=== PATIENT | female | born 1930 | race Caucasian/White ===

== ENCOUNTER 2017-09-16 16:18 | Inpatient (IN) | payer OTHER ==
[~2017-09-16] VITALS: Ht 170.2 cm; Wt 81.4 kg
[2017-09-16 16:55] LABS: BASOPHIL (%) 0.1 % (0-1); EOSINOPHIL (%) 0 % (0-5); HEMATOCRIT 42.9 % (36.0-46.0); HEMOGLOBIN 14.7 G/DL (11.9-15.5); IMMATURE GRANULOCYTE (%) 0.6 % (0.0-0.7); LYMPHOCYTE (%) 6.9 % (15-42); MCH 30.8 PG (29.0-34.0); MCHC 34.3 G/DL (30.0-36.0); MCV 89.7 FL (83-99); MONOCYTE (%) 7.6 % (3-12); MONOCYTE COUNT 1.1 K/uL (0-0.8); NEUTROPHIL (%) 84.8 % (45-76); NEUTROPHIL COUNT 12.1 K/uL (1.8-6.4); PLATELET COUNT 221 K/uL (156-360); RBC DIS.WIDTH-CV 12.4 % (11.8-14.6); RBC DIS.WIDTH-SD 41.2 % (39-53); RED BLOOD COUNT 4.78 M/uL (3.80-5.20); WHITE BLOOD COUNT 14.3 K/uL (4.1-10.2)
[2017-09-16 16:59] LABS: INTER. NORMALIZED RATIO 1.1
[2017-09-16 17:07] LABS: ALBUMIN 3.8 g/dL (3.2-4.8)
[2017-09-16 17:08] LABS: CHLORIDE 103 mEq/L (99-109); POTASSIUM 4.2 mEq/L (3.7-5.4); SODIUM 141 mEq/L (136-147)
[2017-09-16 17:10] LABS: GLUCOSE 107 mg/dL (70-99); TOTAL PROTEIN 7.1 g/dL (6.4-8.3)
[2017-09-16 17:12] LABS: TOTAL BILIRUBIN 0.7 mg/dL (0.0-1.0)
[2017-09-16 17:13] LABS: ALKALINE PHOSPHATASE 59 IU/L (3-129)
[2017-09-16 17:14] LABS: CREATININE 1.1 mg/dL (0.6-1.3); GFR ESTIMATE (CALCULATED) 50 mL/min/
[2017-09-16 17:15] LABS: AST (GOT) 247 IU/L (2-34); TROP-I INTERPRETATION NEGATIVE; TROPONIN-I 0.06 ng/mL (0.0-0.30); UREA NITROGEN (BUN) 55 mg/dL (9-23)
[2017-09-16 17:17] LABS: ALT (GPT) 107 IU/L (3-49)
[2017-09-16 17:24] LABS: CK-MB 49.9 ng/mL (0.0-4.9)
[2017-09-16 17:28] LABS: CKMB RELATIVE INDEX 0.6 (0.0-3.9); TOTAL CK 7857 IU/L (1-294)
[2017-09-16 17:51] LABS: CREATINE KINASE 7857 IU/L (1-294)
[2017-09-16] MEDS ORDERED: LISINOPRIL20 MG PO (18:24)
[2017-09-16] MEDS ORDERED: ATENOLOL50 MG PO (18:24)
[2017-09-16] MEDS ORDERED: AMLODIPINE BES2.5 MG PO (18:24)
[2017-09-16] MEDS ORDERED: PRAVASTATIN SOD40 MG PO (18:25)
[2017-09-16] MEDS ORDERED: GLUCOSAMINE &1 EAC1 PO (18:25)
[2017-09-16] MEDS ORDERED: ADVIL200 MG PO (18:26)
[2017-09-16] MEDS ORDERED: ONE DAILY1 EAC3 PO (18:26)
[2017-09-16] MEDS ORDERED: BIOFREEZE TP (18:27)
[2017-09-16] MEDS ORDERED: ARTIFICIAL TEAR1510 BOTH EYES (18:28)
[2017-09-16 19:57] LABS: APPEARANCE SL.HAZY ((CLEAR)); BILIRUBIN NEGATIVE; BLOOD MODERATE; GLUCOSE (STRIP) NEGATIVE; KETONES 5; LEUKOCYTES NEGATIVE; NITRITE NEGATIVE; PROTEIN (STRIP) 100; SPECIFIC GRAVITY 1.023 (1.000-1.030); UROBILINOGEN 0.2 MG/DL (0.2-1.0)
[2017-09-16 20:10] LABS: BACTERIA NONE SEEN /HPF; EPITHELIAL CELLS NONE SEEN /HPF; HYALINE CASTS 0-5 /LPF; MUCUS TRACE /LPF; RED BLOOD CELLS 0-5 /HPF (0-5); UCUL ADDED? NO; WHITE BLOOD CELLS 0-5 /HPF (0-5)
[2017-09-16 20:17] LABS: COLOR YELLOW ((YELLOW))
[2017-09-16 22:00] VITALS: BP 133/52
[2017-09-16 23:14] LABS: TROP-I INTERPRETATION NEGATIVE; TROPONIN-I 0.05 ng/mL (0.0-0.30)
[2017-09-16 23:30] VITALS: BP 148/62
[2017-09-17 05:00] VITALS: BP 119/60
[2017-09-17 05:36] LABS: HEMATOCRIT 38.6 % (36.0-46.0); MCH 30.8 PG (29.0-34.0); MCHC 33.7 G/DL (30.0-36.0); MCV 91.5 FL (83-99); PLATELET COUNT 204 K/uL (156-360); RBC DIS.WIDTH-CV 12.7 % (11.8-14.6); RBC DIS.WIDTH-SD 41.5 % (39-53); RED BLOOD COUNT 4.22 M/uL (3.80-5.20); WHITE BLOOD COUNT 10.9 K/uL (4.1-10.2)
[2017-09-17 05:54] LABS: TROP-I INTERPRETATION NEGATIVE; TROPONIN-I 0.08 ng/mL (0.0-0.30)
[2017-09-17 06:17] LABS: ALBUMIN 3.2 G/DL (3.2-4.8); ALKALINE PHOSPHATASE 44 IU/L (3-129); ALT (GPT) 81 IU/L (3-49); AST (GOT) 173 IU/L (2-34); CHLORIDE 106 MEQ/L (99-109); CREATINE KINASE 4836 IU/L (1-294); CREATININE 1.1 MG/DL (0.6-1.3); DIRECT BILIRUBIN 0.1 mg/dL (0.0-0.3); GFR ESTIMATE (CALCULATED) 50 mL/min/; GLUCOSE 104 mg/dL (70-99); POTASSIUM 3.6 MEQ/L (3.7-5.4); SODIUM 141 MEQ/L (136-147); TOTAL BILIRUBIN 0.6 MG/DL (0.0-1.0); TOTAL PROTEIN 5.7 G/DL (6.4-8.3); UREA NITROGEN (BUN) 56 mg/dL (9-23)
[2017-09-17 12:00] VITALS: BP 133/63
[2017-09-17 15:45] VITALS: BP 125/60
[2017-09-17 19:30] VITALS: BP 126/58
[2017-09-17 23:45] VITALS: BP 142/71
[2017-09-18 04:05] VITALS: BP 142/64
[2017-09-18 05:47] LABS: HEMATOCRIT 35.5 % (36.0-46.0); HEMOGLOBIN 11.7 G/DL (11.9-15.5); MCH 30.4 PG (29.0-34.0); MCV 92.2 FL (83-99); RBC DIS.WIDTH-CV 12.8 % (11.8-14.6); RBC DIS.WIDTH-SD 42.8 % (39-53); RED BLOOD COUNT 3.85 M/uL (3.80-5.20); WHITE BLOOD COUNT 6.5 K/uL (4.1-10.2)
[2017-09-18 06:08] LABS: ALBUMIN 2.7 G/DL (3.2-4.8); ALKALINE PHOSPHATASE 40 IU/L (3-129); ALT (GPT) 70 IU/L (3-49); AST (GOT) 120 IU/L (2-34); CHLORIDE 110 MEQ/L (99-109); CREATINE KINASE 2359 IU/L (1-294); CREATININE 0.7 MG/DL (0.6-1.3); DIRECT BILIRUBIN 0.1 mg/dL (0.0-0.3); GFR ESTIMATE (CALCULATED) > 59 mL/min/; GLUCOSE 100 mg/dL (70-99); POTASSIUM 3.8 MEQ/L (3.7-5.4); SODIUM 142 MEQ/L (136-147); TOTAL BILIRUBIN 0.6 MG/DL (0.0-1.0); TOTAL PROTEIN 4.8 G/DL (6.4-8.3); UREA NITROGEN (BUN) 35 mg/dL (9-23)
[2017-09-18 06:25] LABS: PLAT.SUFFICIENCY DECREASED; PLATELET COUNT 112 K/uL (156-360)
[2017-09-18 09:00] VITALS: BP 135/61
[2017-09-18 12:00] VITALS: BP 136/65
[2017-09-18 15:17] VITALS: BP 148/65
[2017-09-18 19:47] VITALS: BP 147/68
[2017-09-18 23:13] VITALS: BP 145/65
[2017-09-19 05:31] VITALS: BP 155/69
[2017-09-19 09:00] VITALS: BP 138/63
[2017-09-19 16:00] VITALS: BP 188/89
[2017-09-19 19:10] VITALS: BP 178/80
[2017-09-20] VITALS (8 sets, daily range): BP systolic 136–168; BP diastolic 62–86
[2017-09-20 06:46] LABS: CHLORIDE 105 MEQ/L (99-109); CREATINE KINASE 781 IU/L (1-294); CREATININE 0.8 MG/DL (0.6-1.3); GFR ESTIMATE (CALCULATED) > 59 mL/min/; GLUCOSE 129 mg/dL (70-99); POTASSIUM 4.3 MEQ/L (3.7-5.4); SODIUM 139 MEQ/L (136-147); UREA NITROGEN (BUN) 18 mg/dL (9-23)
[2017-09-20 12:07] LABS: HEMATOCRIT 39.2 % (36.0-46.0); HEMOGLOBIN 12.9 G/DL (11.9-15.5); MCH 30.6 PG (29.0-34.0); MCHC 32.9 G/DL (30.0-36.0); MCV 92.9 FL (83-99); RBC DIS.WIDTH-CV 12.6 % (11.8-14.6); RBC DIS.WIDTH-SD 42.7 % (39-53); RED BLOOD COUNT 4.22 M/uL (3.80-5.20); WHITE BLOOD COUNT 8.4 K/uL (4.1-10.2)
[2017-09-20 12:11] LABS: PLATELET COUNT 156 K/uL (156-360)
[2017-09-21 04:26] VITALS: BP 157/76
[2017-09-21 06:11] LABS: CHLORIDE 106 MEQ/L (99-109); CREATININE 0.6 MG/DL (0.6-1.3); GFR ESTIMATE (CALCULATED) > 59 mL/min/; GLUCOSE 103 mg/dL (70-99); POTASSIUM 3.5 MEQ/L (3.7-5.4); SODIUM 140 MEQ/L (136-147); UREA NITROGEN (BUN) 17 mg/dL (9-23)
[2017-09-21 07:33] LABS: CREATINE KINASE 286 IU/L (1-294)
[2017-09-21 08:45] VITALS: BP 157/80
[2017-09-21] MEDS ORDERED: AMLODIPINE BESYL5 MG PO (11:08)
[2017-09-21] MEDS ORDERED: CLOTRIMAZOLE15 GM TP (11:09)
== END 2017-09-21 12:44 | DRG 558 ==
LOC: EME 16:18 → EDOF 20:34 → 3EAST 20:34 → 4EAST 20:34 → ENRESERV 20:36 → 4EAST 21:39 → ENRESERV 09-20 00:58 → 3EAST 09-20 01:58
PROVIDERS: Emergency Medicine; Hospitalist; Physician Assistant
DX: M62.82 Rhabdomyolysis (principal); B37.0 Candidal stomatitis; B37.3 Candidiasis of vulva and vagina; E86.0 Dehydration; E87.6 Hypokalemia; I10 Essential (primary) hypertension; D69.6 Thrombocytopenia, unspecified; E78.5 Hyperlipidemia, unspecified; I27.20 Pulmonary hypertension, unspecified; I44.7 Left bundle-branch block, unspecified; M17.0 Bilateral primary osteoarthritis of knee; S40.012A Contusion of left shoulder, initial encounter; S40.011A Contusion of right shoulder, initial encounter; S80.02XA Contusion of left knee, initial encounter; S80.01XA Contusion of right knee, initial encounter; S20.219A Contusion of unspecified front wall of thorax, initial encounter; S00.83XA Contusion of other part of head, initial encounter; W19.XXXA Unspecified fall, initial encounter; Y92.009 Unspecified place in unspecified non-institutional (private) residence as the place of occurrence of the external cause; Z66 Do not resuscitate; Z91.81 History of falling
CPT/HCPCS: 70450; 70551; 71045; 71250; 72125; 72170; 73030; 73564; 80048; 80053; 80076; 81003; 82550; 82553; 84484; 85025; 85027; 85610; 85730; 93005; 93306; 99281; 99285; C1755; J1644; J7030